=== PATIENT | female | born 1970 | race Caucasian/White ===

== ENCOUNTER 2016-06-18 17:28 | Emergency (ER) | payer BC ==
[~2016-06-18] VITALS: Ht 162.6 cm; Wt 67.1 kg
[2016-06-18 17:42] VITALS: BP 133/64
[2016-06-18] MEDS ORDERED: MORPHINE SULFATE 4 MG/ML DISP.SYRIN. IM ONE (18:45)
[2016-06-18 19:13] LABS: BILIRUBIN,URINE NEGATIVE (NEG); GLUCOSE,URINE NEGATIVE (NEG); NITRITE,URINE NEGATIVE (NEG); PH,URINE 5.5; PROTEIN,URINE NEGATIVE (NEG-TRACE)
[2016-06-18 19:30] LABS: BACTERIA,URINE FEW /HPF (0-FEW); RBC,URINE 0 /HPF (0-2); SQUAMOUS EPITHELIAL CELL,UR MOD /LPF
[2016-06-18 19:31] LABS: TRICHOMONAS,URINE PRESENT
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
[2016-06-18] MEDS ORDERED: METRONIDAZOLE 500 MG TABLET. PO ONE (20:00)
[2016-06-18] MEDS ORDERED: AZITHROMYCIN 250 MG TABLET PO ONE (20:00)
[2016-06-18] MEDS ORDERED: CEFTRIAXONE IM 250 MG VIAL. IM ONE (20:00)
[2016-06-18] MEDS ORDERED: HYDR-971 PO (20:36)
[2016-06-18] MEDS ORDERED: METH-37 PO (20:36)
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
== END 2016-06-18 20:42 | disposition home or self-care (01) ==
LOC: ER 17:28
DX: S46.912A Strain of unspecified muscle, fascia and tendon at shoulder and upper arm level, left arm, initial encounter (principal); S16.1XXA Strain of muscle, fascia and tendon at neck level, initial encounter; S30.0XXA Contusion of lower back and pelvis, initial encounter; S20.212A Contusion of left front wall of thorax, initial encounter; A59.03 Trichomonal cystitis and urethritis; Z90.710 Acquired absence of both cervix and uterus; Z98.84 Bariatric surgery status; Z98.890 Other specified postprocedural states; Z98.1 Arthrodesis status; Y08.89XA Assault by other specified means, initial encounter; Y93.89 Activity, other specified; Y92.89 Other specified places as the place of occurrence of the external cause; Y99.8 Other external cause status
CPT/HCPCS: 71101; 72125; 73030; 81001; 81025; 87086; 96372; 99285; J0696; J2270; Q0144